=== PATIENT | male | born 1955 | race American Indian/Alaskan Native ===

== ENCOUNTER 2018-07-27 07:44 | Outpatient (CLI) | payer MEDICAID ==
[2018-07-27 09:28] LABS: Blood Urea Nitrogen 15 mg/dL (9-20)
--- NOTE | 2018-07-27 12:59 | Cat Scan Report ---
PROCEDURE: CT ANGIO CHEST TECHNIQUE: CT angiography of the chest was performed. IV contrast was administered. Axial images and coronal and sagittal reformatted images were obtained. HISTORY: I10 ESSENTIAL HTN/I17.2 THORACIC AORTIC ANEURYSM WITHOUT RUPTURE COMPARISON: None FINDINGS: There is no aortic dissection seen. There is no significant thoracic aortic aneurysm. Maximum ascending aortic diameter is 3.9 cm. There are atherosclerotic calcifications in the thoracic aorta. There is no pulmonary embolism seen. PE evaluation is limited by breathing motion. This is especially notable in the lower lobes. There is no acute infiltrate seen. There is no pleural effusion or pneumothorax seen. IMPRESSION: There is no aortic dissection or aneurysm seen. Maximum ascending aortic diameter is 3.9 cm. No pulmonary embolus seen. PE evaluation is limited by breathing motion. This document is electronically signed by Margarita Fiore MD., July 27 2018 12:57:29 PM ET
--- NOTE | 2018-07-27 13:42 | Cat Scan Report ---
PROCEDURE: CT ANGIO ABDOMEN PELVIS TECHNIQUE: CTA of the abdomen and pelvis was performed after the administration of intravenous contr ast. Rotating MIPS were included. HISTORY: ESSENTIAL (PRIMARY) HYPERTENSION COMPARISONS: None FINDINGS: Lower thorax: The lung bases are clear. The visualized portions of the heart demonstrate no abnormali ty. Liver: Normal attenuation. There is a focal area of hyperenhancement along the periphery of the poste rior aspect of the right hepatic lobe measuring 8 mm. Gallbladder/biliary system: No cholelithiasis. The common bile duct appears nondilated. Spleen: No splenic mass. Pancreas: No masses. No pancreatic duct dilation. Adrenal glands: No masses. Kidneys: No masses or cysts. No hydronephrosis. No renal or ureteral calculi. Vasculature: The abdominal aorta is nondilated. No abdominal aortic aneurysm or dissection. Mild calc ified atherosclerotic plaque is seen within the abdominal aorta and branch vessels. No evidence of ve ssel stenosis. There are 2 right renal arteries. There are 3 left renal arteries. Lymph nodes: No enlarged lymph nodes. Bowel: No bowel obstruction. No free fluid. No free air. The appendix is nondilated and noninflamed. No diverticulosis. Pelvis: Normal anatomy. No urinary bladder wall thickening or filling defects. Abdominal wall: Small fat-containing left inguinal hernia is seen. Small fat-containing umbilical her yumiko is seen. Bones: No acute finding. IMPRESSION: 1. No evidence of abdominal aortic aneurysm or dissection. 2. Three left renal arteries and two right renal arteries without evidence of stenosis. 3. Nonspecific hyperenhancing lesion in the periphery of the right hepatic lobe may represent a flash fill hemangioma versus other vascular malformation or other etiology. This document is electronically signed by Lola Elizondo., July 27 2018 01:39:59 PM ET
== END 2018-07-27 07:45 | disposition home or self-care (01) ==
LOC: CT 07:44
PROVIDERS: ATTEND Internal Medicine Cardiovascular Disease
DX: K42.9 Umbilical hernia without obstruction or gangrene (principal); I70.0 Atherosclerosis of aorta; I10 Essential (primary) hypertension
CPT/HCPCS: 36415; 71275; 74174; 82565; 84520; Q9967